=== PATIENT | male | born 1995 | race Asian ===

== ENCOUNTER 2017-08-27 11:54 | Emergency (ER) | payer OTHER ==
[~2017-08-27] VITALS: Ht 170.2 cm; Wt 56.8 kg
[2017-08-27 13:51] VITALS: BP 120/70
== END 2017-08-27 13:52 | disposition home or self-care (01) ==
LOC: EMS 11:55 → EDSEX 11:55 → EMS 13:52
DX: Z04.1 Encounter for examination and observation following transport accident (principal); V49.59XA Passenger injured in collision with other motor vehicles in traffic accident, initial encounter; Y93.89 Activity, other specified; Y92.89 Other specified places as the place of occurrence of the external cause; Y99.8 Other external cause status
CPT/HCPCS: 99281